=== PATIENT | female | born 1975 | race Caucasian/White ===

== ENCOUNTER 2016-06-20 20:48 | Emergency (ER) | payer OTHER ==
[2016-06-20 21:17] VITALS: BP 118/74
[2016-06-20] MEDS ORDERED: Gabapentin CAP(*) 100 MG PO ONE (23:09)
[2016-06-20] MEDS ORDERED: predniSONE TAB* 5 MG PO ONE (23:09)
[2016-06-20] MEDS ORDERED: predniSONE TAB* 10 MG PO ONE (23:09)
--- NOTE | 2016-06-20 23:16 | ED ---
Lower Extremity - HPI Summary HPI Summary: Patient arrives with CC of burning, pain and sensitivity in right lateral and posterior thigh X 2 days. she states this is similiar to her previous nerve pain when she had endometriosis and experienced pain in the legs that were sensitive to touch. She has not had any vaginal bleeding or experienced any symptoms of endometriosis for a few years. She has taken 800mg ibuprofen with no relief. Pain has not worsened or improved. light touch causes pain and burning sensation. femoral pulses good. no fever. otherwise feeling healthy. no redness over the area. no warmth noted. no color changes or decreased range of motion - History of Current Complaint Chief Complaint: EDExtremityLower Stated Complaint: RT LEG BURNING PAIN Hx Obtained From: Patient Onset of Pain: Hours Onset/Duration: Days Severity Initially: Mild Severity Currently: Moderate Pain Intensity: 6 Pain Scale Used: 0-10 Numeric Timing: Constant Location: Is Discrete @ - right posterior thigh and right lateral thigh Character Of Pain: Sharp, Burning Associated Signs And Symptoms: Positive: Negative Aggravating Factor(s): Other - touch Able to Bear Weight: Yes - Risk Factors Gout Risk Factors: Obesity DVT Risk Factors: Negative Septic Arthritis Risk Factor: Negative - Allergies/Home Medications Allergies/Adverse Reactions: Allergies Allergy/AdvReac Type Severity Reaction Status Date / Time Niacin [From Bugsn[employer]] Allergy Hives Verified 06/20/16 21:16 PMH/Surg Hx/FS Hx/Imm Hx Previously Healthy: Yes - Surgical History Surgery Procedure, Year, and Place: Hysterectomy Infectious Disease History: No Infectious Disease History: Denies: Traveled Outside the [place] in Last 30 Days - Family History Known Family History: Positive: Diabetes, Other - Cancer and Dyslipidemia - Social History Occupation: Employed Full-time Lives: With Family Alcohol Use: None Hx Substance Use: No Substance Use Type: Reports: None Hx Tobacco Use: Yes Smoking Status (MU): Current Some Day Smoker Review of Systems Constitutional: Negative Eyes: Negative ENT: Negative Cardiovascular: Negative Respiratory: Negative Musculoskeletal: Negative Skin: Negative Neurological: Other - burning, sharp pain over posterior and lateral right thigh Psychological: Normal All Other Systems Reviewed And Are Negative: Yes Physical Exam Triage Information Reviewed: Yes Vital Signs On Initial Exam: Initial Vitals Temp Pulse Resp BP Pulse Ox 98.0 F 98 16 118/74 99 06/20/16 21:10 06/20/16 21:10 06/20/16 21:10 06/20/16 21:10 06/20/16 21:10 Vital Signs Reviewed: Yes Appearance: Positive: Well-Appearing, No Pain Distress, Well-Nourished Skin: Positive: Warm, Skin Color Reflects Adequate Perfusion Head/Face: Positive: Normal Head/Face Inspection, Temporal Artery Tenderness Eyes: Positive: Normal, EOMI, RAJANI ENT: Positive: Hearing grossly normal Neck: Positive: Supple, Nontender, No Lymphadenopathy Respiratory/Lung Sounds: Positive: Clear to Auscultation, Breath Sounds Present Cardiovascular: Positive: Normal Musculoskeletal: Positive: Normal, Strength/ROM Intact Neurological: Positive: Alert, Oriented to Person Place, Time, Speech Normal Psychiatric: Positive: Normal Diagnostics - Vital Signs Vital Signs Temp Pulse Resp BP Pulse Ox 06/20/16 21:10 98.0 F 98 16 118/74 99 - Laboratory Lab Statement: Any lab studies that have been ordered have been reviewed, and results considered in the medical decision making process. Lower Extremity Course/Dx - Course Course Of Treatment: Reports of hyperesthesia and allodynia over right posterior and lateral thigh x 2 days. Full ROM, no erythema, warmth, recent surgery or trauma to the area, femoral pulses intact and no fever. D/t presentation, will give steroids and gabapentin for nerve hypersensitivity pain and follow up with PCP for further evaluation. - Diagnoses Differential Diagnosis/HQI/PQRI: Positive: Burn, Phlebitis, Sprain Provider Diagnoses: Hyperesthesia Discharge - Discharge Plan Condition: Stable Disposition: HOME Prescriptions: Gabapentin CAP(*) [Neurontin 100 mg CAP(*)] 200 mg PO TID #30 cap MDD 6 predniSONE TAB* [Deltasone TAB*] 10 mg PO DAILY #17 tab Patient Education Materials: Gabapentin (By mouth) Referrals: Adam PENG,Baudilio Rojas [Primary Care Provider] - Additional Instructions: Yo have been diagnosed with nerve pain. Take Gabapentin and Prednisone as prescribed to you for nerve pain. May take ibuprofen 600mg three times daily with meals for the next week. Follow up with your PCP regarding your symptoms and for further evaluation and blood work. Images - Images Full Body (No Head): 1 - burning and pain
[2016-06-21] MEDS ORDERED: predniSONE TAB* 10 MG PO ONE
== END 2016-06-20 23:47 | disposition home or self-care (01) ==
LOC: ED 20:48
DX: M79.651 Pain in right thigh (principal); R20.3 Hyperesthesia; Z72.0 Tobacco use
CPT/HCPCS: 99282; A9270-GY; J7512

== ENCOUNTER 2016-11-02 16:23 | Emergency (ER) | payer OTHER ==
[2016-11-02] MEDS ORDERED: NS 0.9% 1000 ML* 1,000 ML IV ONE ×2 (18:10→20:12)
[2016-11-02] MEDS ORDERED: Ondansetron INJ* 2 MG/ML VIAL IV ONE (18:10)
[2016-11-02] MEDS ORDERED: HYDROmorphone* 1 MG/ML 1 ML SYR IV ONE ×2 (18:10→21:45)
[2016-11-02 18:35] LABS: Hematocrit 38 % (35-47); Hemoglobin 12.8 g/dl (12.0-16.0); Mean Corpuscular HGB Conc 34 g/dl (31-36); Mean Corpuscular Hemoglobin 30 pg (27-31); Mean Corpuscular Volume 86 fL (80-97); Mean Platelet Volume 8 um3 (7.4-10.4); Red Blood Count 4.35 10^6/ul (4.0-5.4); Red Cell Distribution Width 13 % (10.5-15); White Blood Count 8.9 10^3/ul (3.5-10.8)
--- NOTE | 2016-11-02 18:48 | RAD ---
Indication: Right upper quadrant pain. Real-time sonography of the right upper quadrant was performed. The liver is normal in size. There are no focal lesions or intrahepatic duct dilatation noted. The gallbladder demonstrates no gallstones, pericholecystic fluid or wall thickening. The common duct measures 3 mm. The right kidney measures 10.4 x 5.1 x 4.8 cm with no hydronephrosis. The pancreatic head, neck and proximal body demonstrates no mass or pancreatic duct dilatation. IMPRESSION: No evidence of cholelithiasis or biliary duct dilatation.
[2016-11-02 18:51] LABS: C Reactive Protein 10.92 mg/L (< 5.00); Calcium 9.3 mg/dL (8.6-10.3); EGFR African American 132.9 (>60); EGFR Non-African American 103.3 (>60); Globulin 3.3 g/dL (2-4); Potassium 3.6 mmol/L (3.5-5.0); Total Bilirubin 0.2 mg/dL (0.2-1.0); Total Protein 7.3 g/dL (6.4-8.9)
--- NOTE | 2016-11-02 20:52 | RAD ---
Indication: Right upper quadrant pain. No prior study is available. 2 views of the chest including dual energy PA views and a straight no mediastinal shift. Heart is of normal size and configuration. Lung vasquez demonstrate no pleural fluid, pneumonia or pneumothorax. IMPRESSION: No active cardiopulmonary disease is noted.
[2016-11-02] MEDS ORDERED: Pantoprazole IV* 40 MG IV ONE (21:45)
[2016-11-02 21:48] LABS: Urine Bilirubin Negative (Negative); Urine Glucose Negative (Negative); Urine Nitrite Negative (Negative)
--- NOTE | 2016-11-02 21:49 | ED ---
Marcelo Banegas Alok, scribed for Promise Gibbs MD on 11/02/16 at 1814 . Abdominal Pain/Female - HPI Summary HPI Summary: 41F presents to the ED with constant RUQ abd pain since yesterday at 1600. Pt states that following a meal consisting of meat feeling her abd pain. Pt has tried heat and ibuprofen to manage pain with no effect. Pt also notes vomiting yesterday. Pt denies dysuria. PMHx includes HTN. Pt smokes tobacco. - History of Current Complaint Chief Complaint: EDAbdPain Stated Complaint: ABD/RIB PAIN Time Seen by Provider: 11/02/16 17:46 Hx Obtained From: Patient Onset/Duration: Lasting Days, Still Present Timing: Constant Severity Initially: Moderate Severity Currently: Moderate Pain Intensity: 8 Pain Scale Used: 0-10 Numeric Location: Discrete At: RUQ Aggravating Factor(s): Food Alleviating Factor(s): Nothing Associated Signs and Symptoms: Positive: Vomiting. Negative: Urinary Symptoms Allergies/Adverse Reactions: Allergies Allergy/AdvReac Type Severity Reaction Status Date / Time Niacin [From [employer]Cast] Allergy Hives Verified 06/20/16 21:16 PMH/Surg Hx/FS Hx/Imm Hx - Surgical History Surgery Procedure, Year, and Place: Hysterectomy Infectious Disease History: No Infectious Disease History: Denies: Traveled Outside the [place] in Last 30 Days - Family History Known Family History: Positive: Diabetes, Other - Cancer and Dyslipidemia - Social History Occupation: Employed Full-time Lives: With Family Alcohol Use: None Hx Substance Use: No Substance Use Type: Reports: None Hx Tobacco Use: Yes Smoking Status (MU): Current Some Day Smoker Review of Systems Negative: Fever Positive: Abdominal Pain, Vomiting Negative: dysuria All Other Systems Reviewed And Are Negative: Yes Physical Exam Triage Information Reviewed: Yes Vital Signs On Initial Exam: Initial Vitals Temp Pulse Resp BP Pulse Ox 98.1 F 106 20 130/70 100 11/02/16 16:33 11/02/16 16:33 11/02/16 16:33 11/02/16 16:33 11/02/16 16:33 Vital Signs Reviewed: Yes Appearance: Positive: Well-Appearing, No Pain Distress Skin: Positive: Warm, Skin Color Reflects Adequate Perfusion, Dry Eyes: Positive: EOMI, RAJANI ENT: Positive: Pharynx normal, TMs normal Neck: Positive: Supple, Nontender Respiratory/Lung Sounds: Positive: Clear to Auscultation, Breath Sounds Present. Negative: Rales, Rhonchi, Wheezes Cardiovascular: Positive: RRR, Other - no gallop. Negative: Murmur, Rub Abdomen Description: Positive: Soft, Other: - RUQ tenderness Bowel Sounds: Positive: Present Musculoskeletal: Positive: Strength/ROM Intact. Negative: Edema Left, Edema Right Neurological: Positive: Sensory/Motor Intact, Alert, Oriented to Person Place, Time, CN Intact II-III Psychiatric: Positive: Affect/Mood Appropriate Diagnostics - Vital Signs Vital Signs Temp Pulse Resp BP Pulse Ox 11/02/16 16:34 98.2 F 98 20 130/70 100 11/02/16 16:33 98.1 F 106 20 130/70 100 - Laboratory Lab Results: Lab Results 11/02/16 11/02/16 11/02/16 Range/Units 18:30 18:30 18:30 WBC 8.9 (3.5-10.8) 10^3/ul RBC 4.35 (4.0-5.4) 10^6/ul Hgb 12.8 (12.0-16.0) g/dl Hct 38 (35-47) % MCV 86 (80-97) fL MCH 30 (27-31) pg MCHC 34 (31-36) g/dl RDW 13 (10.5-15) % Plt Count 267 (150-450) 10^3/ul MPV 8 (7.4-10.4) um3 Neut % (Auto) 53.7 (38-83) % Lymph % (Auto) 38.2 (25-47) % [place] % (Auto) 5.2 (1-9) % Eos % (Auto) 2.3 (0-6) % Baso % (Auto) 0.6 (0-2) % Absolute Neuts (auto) 4.8 (1.5-7.7) 10^3/ul Absolute Lymphs (auto) 3.4 (1.0-4.8) 10^3/ul Absolute Monos (auto) 0.5 (0-0.8) 10^3/ul Absolute Eos (auto) 0.2 (0-0.6) 10^3/ul Absolute Basos (auto) 0.1 (0-0.2) 10^3/ul Absolute Nucleated RBC 0 10^3/ul Nucleated RBC % 0 D-Dimer, Quantitative (Less Than 230) ng/mL Sodium 135 (133-145) mmol/L Potassium 3.6 (3.5-5.0) mmol/L Chloride 102 (101-111) mmol/L Carbon Dioxide 23 (22-32) mmol/L Anion Gap 10 (2-11) mmol/L BUN 16 (6-24) mg/dL Creatinine 0.64 (0.51-0.95) mg/dL Est GFR ( Amer) 132.9 (>60) Est GFR (Non-Af Amer) 103.3 (>60) BUN/Creatinine Ratio 25.0 H (8-20) Glucose 84 (70-100) mg/dL Lactic Acid 1.1 (0.5-2.0) mmol/L Calcium 9.3 (8.6-10.3) mg/dL Total Bilirubin 0.20 (0.2-1.0) mg/dL AST 16 (13-39) U/L ALT 16 (7-52) U/L Alkaline Phosphatase 67 (34-104) U/L C-Reactive Protein 10.92 H (< 5.00) mg/L Total Protein 7.3 (6.4-8.9) g/dL Albumin 4.0 (3.2-5.2) g/dL Globulin 3.3 (2-4) g/dL Albumin/Globulin Ratio 1.2 (1-3) Amylase 34 (29-103) U/L Lipase 22 (11.0-82.0) U/L Beta HCG, Quant 1.62 mIU/mL 11/02/16 Range/Units 18:30 WBC (3.5-10.8) 10^3/ul RBC (4.0-5.4) 10^6/ul Hgb (12.0-16.0) g/dl Hct (35-47) % MCV (80-97) fL MCH (27-31) pg MCHC (31-36) g/dl RDW (10.5-15) % Plt Count (150-450) 10^3/ul MPV (7.4-10.4) um3 Neut % (Auto) (38-83) % Lymph % (Auto) (25-47) % [place] % (Auto) (1-9) % Eos % (Auto) (0-6) % Baso % (Auto) (0-2) % Absolute Neuts (auto) (1.5-7.7) 10^3/ul Absolute Lymphs (auto) (1.0-4.8) 10^3/ul Absolute Monos (auto) (0-0.8) 10^3/ul Absolute Eos (auto) (0-0.6) 10^3/ul Absolute Basos (auto) (0-0.2) 10^3/ul Absolute Nucleated RBC 10^3/ul Nucleated RBC % D-Dimer, Quantitative < 200 (Less Than 230) ng/mL Sodium (133-145) mmol/L Potassium (3.5-5.0) mmol/L Chloride (101-111) mmol/L Carbon Dioxide (22-32) mmol/L Anion Gap (2-11) mmol/L BUN (6-24) mg/dL Creatinine (0.51-0.95) mg/dL Est GFR ( Amer) (>60) Est GFR (Non-Af Amer) (>60) BUN/Creatinine Ratio (8-20) Glucose (70-100) mg/dL Lactic Acid (0.5-2.0) mmol/L Calcium (8.6-10.3) mg/dL Total Bilirubin (0.2-1.0) mg/dL AST (13-39) U/L ALT (7-52) U/L Alkaline Phosphatase (34-104) U/L C-Reactive Protein (< 5.00) mg/L Total Protein (6.4-8.9) g/dL Albumin (3.2-5.2) g/dL Globulin (2-4) g/dL Albumin/Globulin Ratio (1-3) Amylase (29-103) U/L Lipase (11.0-82.0) U/L Beta HCG, Quant mIU/mL Result Diagrams: 11/02/16 18:30 11/02/16 18:30 Lab Statement: Any lab studies that have been ordered have been reviewed, and results considered in the medical decision making process. - Radiology CXR Xray Interpretation: Positive (See Comments) - IMPRESSION: NO ACTIVE CARDIOPULMONARY DISEASE IS NOTED. Radiology Interpretation Completed By: Radiologist - EKG 1752 Cardiac Rate: NL - 75 bpm EKG Rhythm: Sinus Rhythm - Additional Comments Diagnostic Additional Comments: Gallbladder US - IMPRESSION: No evidence of cholelithiasis or biliary duct dilatation. Re-Evaluation - Re-Evaluation First Eval Re-Evaluation Time: 19:18 Change: Unchanged Comment: gallbladder US negative. Will do XRAY, UA and check ddimer. Abdominal Pain Fem Course/Dx - Course Course Of Treatment: 41 yo female with ruq pain u/s gall bladder (and rt kidney neg) ,labs neg, cxr neg, but pain is quite persistent from under breast to ruq and epigastric area. she will be re-medicated and given protonix and a scan is being ordered. Pt is being signed out to Dr. Carrion - Diagnoses Provider Diagnoses: Abdominal pain Discharge - Discharge Plan Condition: Stable Disposition: OTHER Discharge Disposition Comment: to be determined The documentation as recorded by the Marcelo bridgse Alok accurately reflects the service I personally performed and the decisions made by me, Promise Gibbs MD.
[2016-11-02] MEDS ORDERED: Iohexol 300* (CONTRAST) 10 ML SDV IV ONE (22:01)
--- NOTE | 2016-11-03 00:03 | ED ---
Enrrique Banegas Aidan, scribed for Kenton Grullon on 11/02/16 at 2357 . Progress - Progress Note Progress Note: CHEST CTA IMPRESSION BY DR. GRULLON: NEGATIVE EXAMINATION. The patient will be discharged home with a diagnosis of nonspecific abdominal pain. The patient should follow up with her primary care provider within 3 days. Re-Evaluation - Re-Evaluation First Eval Re-Evaluation Time: 19:18 Change: Unchanged Comment: gallbladder US negative. Will do XRAY, UA and check ddimer. Course/Dx - Course Course Of Treatment: 41 yo female with ruq pain u/s gall bladder (and rt kidney neg) ,labs neg, cxr neg, but pain is quite persistent from under breast to ruq and epigastric area. she will be re-medicated and given protonix and a scan is being ordered. Pt is being signed out to Dr. Grullon. The patient will be diagnosed with nonspecific abdominal pain and discharged. - Diagnoses Provider Diagnoses: Nonspecific abdominal pain The documentation as recorded by the Enrrique bridges Aidan accurately reflects the service I personally performed and the decisions made by Murali zimmer Emmanuel.
[2016-11-03 00:35] VITALS: BP 107/55
--- NOTE | 2016-11-03 07:50 | RAD ---
INDICATION: 41-year-old female with abdominal pain after eating. Request for CT imaging of the chest/abdomen/pelvis COMPARISON: Gallbladder sonogram same date TECHNIQUE: Axial source images were obtained from the thoracic inlet to the symphysis pubis following administration of oral and intravenous contrast. 100 mL Omnipaque 300 was utilized. Coronal and sagittal reconstructed images were acquired. CHEST FINDINGS: Neck/thyroid: The visualized neck to include the thyroid appear normal. Chest wall: There are no acute abnormalities of the bony thorax or chest wall. There is no supraclavicular, infraclavicular, or axillary lymphadenopathy. Lungs : There are no pulmonary parenchymal masses or infiltrates. The pulmonary interstitium appears normal. There are no endobronchial lesions. Cardiomediastinal structures: The heart is normal in size. There is no pericardial effusion. There is no evidence of aortic aneurysm or dissection. The pulmonary vessels appear normal. There is no mediastinal or hilar adenopathy. The esophagus appears normal. Pleura : There are no pleural-based masses or effusions. ABDOMINAL/PELVIC FINDINGS: Liver: The liver is normal in size. There are no masses. There is no ductal dilatation. Gallbladder: There are no calcified gallstones. There is no evidence of wall thickening or pericholecystic fluid. Spleen: The spleen is normal in size. There are no masses. Pancreas: There is no evidence of pancreatic mass or ductal dilatation. Adrenal glands: There is no evidence of adrenal mass. Kidneys: The kidneys are normal in size and position. There are prompt nephrograms and there is prompt excretion bilaterally. There are no renal parenchymal masses. There is no evidence of nephrolithiasis. Adenopathy: There is no evidence of adenopathy by size criteria. Fluid collections: There are no free or localized fluid collections. Vessels:The aorta and IVC appear normal GI tract: There are no acute CT bowel findings. There is no obstruction. The stomach and small bowel appear normal. The lower GI tract is remarkable for moderate stool but is otherwise normal. The appendix is not visualized. There is no periappendiceal inflammatory change. Pelvic organs: Hysterectomy. No adnexal mass Bladder: There are no bladder masses. Abdominal and pelvic soft tissues: The extraperitoneal abdominal and pelvic soft tissues appear normal.. Osseous structures: There are no acute osseous findings. IMPRESSION: 1. NO CT ABNORMALITIES THE CHEST. 2. NO SIGNIFICANT CT ABDOMEN ABNORMALITIES THE ABDOMEN OR PELVIS. THERE IS MODERATE STOOL WITHIN THE COLON.
== END 2016-11-03 00:35 ==
LOC: ED 16:23
DX: R10.11 Right upper quadrant pain (principal); R10.84 Generalized abdominal pain; R11.10 Vomiting, unspecified; Z72.0 Tobacco use
CPT/HCPCS: 36415; 71020; 71260; 74177; 76705; 80053; 81003; 82150; 83605; 83690; 84702; 85025; 85379; 86140; 93005; 96374; 96375; 99283; J1170; J2405; Q9967

== ENCOUNTER 2018-02-24 08:17 | Emergency (ER) | payer OTHER ==
[2018-02-24] MEDS ORDERED: NS 0.9% 1000 ML* 1,000 ML IV ONE (08:43)
[2018-02-24] MEDS ORDERED: Ketorolac INJ* 30 MG/ML 1 ML VIAL IV PUSH ONE (08:43)
[2018-02-24 08:56] LABS: ABS Basophils 0.1 10^3/ul (0-0.2); ABS Eosinophils 0.2 10^3/ul (0-0.6); ABS Lymphocytes 2.4 10^3/ul (1.0-4.8); ABS Monocytes 0.4 10^3/ul (0-0.8); ABS Nucleated RBC 0 10^3/ul; Eosinophil % 2.8 % (0-6); Hematocrit 39 % (35-47); Hemoglobin 13.6 g/dl (12.0-16.0); Lymphocyte % 39.6 % (25-47); Mean Corpuscular HGB Conc 35 g/dl (31-36); Mean Corpuscular Hemoglobin 30 pg (27-31); Mean Corpuscular Volume 86 fL (80-97); Mean Platelet Volume 7.9 um3 (7.4-10.4); Nucleated Red Blood Cells % 0.2; Platelet Count 271 10^3/ul (150-450); Red Blood Count 4.53 10^6/ul (4.00-5.40); Red Cell Distribution Width 13 % (10.5-15); White Blood Count 6.1 10^3/ul (3.5-10.8)
[2018-02-24 09:14] LABS: EGFR Non-African American 119.9 (>60)
--- NOTE | 2018-02-24 09:20 | RAD ---
Indication: Chest pain. 2 views of the chest including dual energy PA views demonstrates no mediastinal shift. Heart is of normal size and configuration. Lung vasquez appear clear. When compared to previous exam of November 02, 2016 no significant change is noted. IMPRESSION: No active cardiopulmonary disease is noted.
[2018-02-24 11:01] LABS: Urine Appearance Cloudy; Urine Blood Negative (Negative); Urine Color Yellow; Urine Ketones Negative (Negative); Urine Protein Negative (Negative); Urine Specific Gravity 1.011 (1.010-1.030); Urine Urobilinogen Negative (Negative)
[2018-02-24 11:35] VITALS: BP 110/65
--- NOTE | 2018-02-24 13:55 | ED ---
HPI Chest Pain - HPI Summary HPI Summary: Patient is a 42-year-old who presents emergency department for right-sided chest pain times several days. Patient notes she has recently had an upper respiratory infection with a cough but states she has been feeling better. She does note an intermittent and mild productive cough still. She denies fever, chills, abdominal pain, vomiting, diarrhea, urinary symptoms. Patient describes pain as a sharp and heavy sensation that is worse when she takes a deep breath in. It is located to the right side of her chest. She states she has had a gallbladder And HIDA Scan Done before Which Were Negative. Patient Has No Significant past Medical History. She Does Smoke. 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 She Does Not Recall Any Specific Recent Injuries. Symptoms Are Moderate in Severity. Movement and Inspiration Makes Symptoms Worse. Rest Makes Symptoms Better. - History of Current Complaint Chief Complaint: EDChestWallPain Time Seen by Provider: 02/24/18 08:36 Hx Obtained From: Patient Pain Intensity: 3 - Allergy/Home Medications Allergies/Adverse Reactions: Allergies Allergy/AdvReac Type Severity Reaction Status Date / Time MS Zhao [From Drill Map] Allergy Hives Verified 06/20/16 21:16 PMH/Surg Hx/FS Hx/Imm Hx Previously Healthy: Yes - Surgical History Surgery Procedure, Year, and Place: Hysterectomy Infectious Disease History: No Infectious Disease History: Denies: Traveled Outside the [place] in Last 30 Days - Family History Known Family History: Positive: Diabetes, Other - Cancer and Dyslipidemia - Social History Occupation: Employed Full-time Lives: With Family Alcohol Use: None Hx Substance Use: No Substance Use Type: Reports: None Hx Tobacco Use: Yes Smoking Status (MU): Current Some Day Smoker Review of Systems Constitutional: Negative Negative: Fever, Chills Eyes: Negative ENT: Negative Positive: Chest Pain Positive: Cough Gastrointestinal: Negative Negative: Abdominal Pain, Vomiting, Diarrhea, Nausea Genitourinary: Negative Negative: dysuria, frequency, flank pain Musculoskeletal: Negative Skin: Negative Negative: Rash Neurological: Negative All Other Systems Reviewed And Are Negative: Yes Physical Exam Triage Information Reviewed: Yes Vital Signs On Initial Exam: Initial Vitals Temp Pulse Resp BP Pulse Ox 97.8 F 88 19 128/68 98 02/24/18 08:22 02/24/18 08:22 02/24/18 08:22 02/24/18 08:22 02/24/18 08:22 Vital Signs Reviewed: Yes Appearance: Positive: Well-Appearing - Patient sitting up in bed, appears uncomfortable and nontoxic. Skin: Positive: Warm, Dry Head/Face: Positive: Normal Head/Face Inspection Eyes: Positive: Normal, EOMI Neck: Positive: Supple Respiratory/Lung Sounds: Positive: Clear to Auscultation, Breath Sounds Present , Other - Pain on palpation and movement to the right chest wall. No rash.. Negative: Rales, Rhonchi, Wheezes Cardiovascular: Positive: Normal, RRR Abdomen Description: Positive: Nontender, Soft Musculoskeletal: Positive: Normal, Strength/ROM Intact Neurological: Positive: Normal, CN Intact II-III Psychiatric: Positive: Affect/Mood Appropriate Diagnostics - Vital Signs Vital Signs Temp Pulse Resp BP Pulse Ox 02/24/18 11:35 98 F 61 15 110/65 100 02/24/18 11:26 15 110/65 02/24/18 11:00 77 14 98 02/24/18 10:00 64 12 97 02/24/18 09:04 76 14 110/89 99 02/24/18 09:03 73 100 02/24/18 08:34 105 20 119/76 99 02/24/18 08:22 97.8 F 88 19 128/68 98 - Laboratory Lab Results: Lab Results 02/24/18 02/24/18 02/24/18 Range/Units 08:46 08:46 08:46 WBC 6.1 (3.5-10.8) 10^3/ul RBC 4.53 (4.00-5.40) 10^6/ul Hgb 13.6 (12.0-16.0) g/dl Hct 39 (35-47) % MCV 86 (80-97) fL MCH 30 (27-31) pg MCHC 35 (31-36) g/dl RDW 13 (10.5-15) % Plt Count 271 (150-450) 10^3/ul MPV 7.9 (7.4-10.4) um3 Neut % (Auto) 49.4 (38-83) % Lymph % (Auto) 39.6 (25-47) % [place] % (Auto) 7.1 H (0-7) % Eos % (Auto) 2.8 (0-6) % Baso % (Auto) 1.1 (0-2) % Absolute Neuts (auto) 3.0 (1.5-7.7) 10^3/ul Absolute Lymphs (auto) 2.4 (1.0-4.8) 10^3/ul Absolute Monos (auto) 0.4 (0-0.8) 10^3/ul Absolute Eos (auto) 0.2 (0-0.6) 10^3/ul Absolute Basos (auto) 0.1 (0-0.2) 10^3/ul Absolute Nucleated RBC 0 10^3/ul Nucleated RBC % 0.2 D-Dimer, Quantitative < 200 (Less Than 230) ng/mL Sodium 137 (135-145) mmol/L Potassium 4.0 (3.5-5.0) mmol/L Chloride 107 (101-111) mmol/L Carbon Dioxide 21 L (22-32) mmol/L Anion Gap 9 (2-11) mmol/L BUN 15 (6-24) mg/dL Creatinine 0.56 (0.51-0.95) mg/dL Est GFR ( Amer) 145.1 (>60) Est GFR (Non-Af Amer) 119.9 (>60) BUN/Creatinine Ratio 26.8 H (8-20) Glucose 98 (70-100) mg/dL Calcium 9.5 (8.6-10.3) mg/dL Total Bilirubin 0.40 (0.2-1.0) mg/dL AST 14 (13-39) U/L ALT 16 (7-52) U/L Alkaline Phosphatase 78 (34-104) U/L Troponin I 0.00 (<0.04) ng/mL Total Protein 7.3 (6.4-8.9) g/dL Albumin 4.2 (3.2-5.2) g/dL Globulin 3.1 (2-4) g/dL Albumin/Globulin Ratio 1.4 (1-3) Urine Color Urine Appearance Urine pH (5-9) Ur Specific Eagle (1.010-1.030) Urine Protein (Negative) Urine Ketones (Negative) Urine Blood (Negative) Urine Nitrate (Negative) Urine Bilirubin (Negative) Urine Urobilinogen (Negative) Ur Leukocyte Esterase (Negative) Urine Glucose (Negative) 09/26/18 Range/Units 10:38 WBC (3.5-10.8) 10^3/ul RBC (4.00-5.40) 10^6/ul Hgb (12.0-16.0) g/dl Hct (35-47) % MCV (80-97) fL MCH (27-31) pg MCHC (31-36) g/dl RDW (10.5-15) % Plt Count (150-450) 10^3/ul MPV (7.4-10.4) um3 Neut % (Auto) (38-83) % Lymph % (Auto) (25-47) % [place] % (Auto) (0-7) % Eos % (Auto) (0-6) % Baso % (Auto) (0-2) % Absolute Neuts (auto) (1.5-7.7) 10^3/ul Absolute Lymphs (auto) (1.0-4.8) 10^3/ul Absolute Monos (auto) (0-0.8) 10^3/ul Absolute Eos (auto) (0-0.6) 10^3/ul Absolute Basos (auto) (0-0.2) 10^3/ul Absolute Nucleated RBC 10^3/ul Nucleated RBC % D-Dimer, Quantitative (Less Than 230) ng/mL Sodium (135-145) mmol/L Potassium (3.5-5.0) mmol/L Chloride (101-111) mmol/L Carbon Dioxide (22-32) mmol/L Anion Gap (2-11) mmol/L BUN (6-24) mg/dL Creatinine (0.51-0.95) mg/dL Est GFR ( Amer) (>60) Est GFR (Non-Af Amer) (>60) BUN/Creatinine Ratio (8-20) Glucose (70-100) mg/dL Calcium (8.6-10.3) mg/dL Total Bilirubin (0.2-1.0) mg/dL AST (13-39) U/L ALT (7-52) U/L Alkaline Phosphatase (34-104) U/L Troponin I (<0.04) ng/mL Total Protein (6.4-8.9) g/dL Albumin (3.2-5.2) g/dL Globulin (2-4) g/dL Albumin/Globulin Ratio (1-3) Urine Color Yellow Urine Appearance Cloudy Urine pH 7.0 (5-9) Ur Specific Eagle 1.011 (1.010-1.030) Urine Protein Negative (Negative) Urine Ketones Negative (Negative) Urine Blood Negative (Negative) Urine Nitrate Negative (Negative) Urine Bilirubin Negative (Negative) Urine Urobilinogen Negative (Negative) Ur Leukocyte Esterase Negative (Negative) Urine Glucose Negative (Negative) Result Diagrams: 02/24/18 08:46 02/24/18 08:46 Lab Statement: Any lab studies that have been ordered have been reviewed, and results considered in the medical decision making process. Chest Pain Course/Dx - Course Course Of Treatment: Pt. presenting with pleuritic chest pain. She is afebrile with stable vital signs. We'll obtain basic labs, EKG and chest x-ray. Patient given a dose of IV Toradol. Blood work is unremarkable including negative troponin and d-dimer. EKG done at 0848 shows a sinus rhythm of 80 bpm , normal axis, appropriate intervals, no ST elevation or depression. Chest x- ray is negative for acute findings, reading per radiology. On reexamination patient is feeling much better and is resting comfortably. Suspect possible costochondritis versus muscle strain. She states she has 800 mg Motrin at home which advised her to take. Advised her to try ice intermittently. Work excuse given. To call her family doctor tomorrow for close follow-up appointment. We' ll return to the ER if symptoms change or worsen. Patient understands and agrees with plan. - Diagnoses Provider Diagnoses: Costochondritis, Muscle strain Discharge - Sign-Out/Discharge Documenting (check all that apply): Patient Departure - Discharge Plan Condition: Improved Disposition: HOME Patient Education Materials: Muscle Strain (ED), Costochondritis (ED) Forms: *Work Release Referrals: Adam PENG,Baudilio Rojas [Primary Care Provider] - Additional Instructions: Schedule a follow up appointment with your PCP Take ibuprofen as directed Ice intermittently Return to ER if symptoms change or worsen - Billing Disposition and Condition Condition: IMPROVED Disposition: Home
== END 2018-02-24 11:35 | disposition home or self-care (01) ==
LOC: ED 08:17
DX: R07.81 Pleurodynia (principal); F17.200 Nicotine dependence, unspecified, uncomplicated; Z88.8 Allergy status to other drugs, medicaments and biological substances
CPT/HCPCS: 36415; 71046; 80053; 81003; 84484; 85025; 85379; 93005; 96361; 96374; 99283; J1885

== ENCOUNTER 2019-06-14 18:22 | Emergency (ER) | payer SELFPAY ==
[2019-06-14 19:26] LABS: ABS Basophils 0.1 10^3/ul (0-0.2); ABS Eosinophils 0.2 10^3/ul (0-0.6); ABS Lymphocytes 2.8 10^3/ul (1.0-4.8); ABS Monocytes 0.4 10^3/ul (0-0.8); ABS Neutrophils 3.5 10^3/ul (1.5-7.7); Eosinophil % 2.9 %; Hematocrit 39 % (35-47); Hemoglobin 13.9 g/dL (12.0-16.0); Lymphocyte % 40.6 %; Mean Corpuscular HGB Conc 36 g/dL (31-36); Mean Corpuscular Hemoglobin 31 pg (27-31); Mean Corpuscular Volume 86 fL (80-97); Mean Platelet Volume 8.2 fL (7.4-10.4); Nucleated Red Blood Cells % 0.1; Platelet Count 292 10^3/uL (150-450); Red Blood Count 4.51 10^6 /uL (3.70-4.87); Red Cell Distribution Width 13 % (10-15)
[2019-06-14 19:30] LABS: INR 1.04 (0.82-1.09)
[2019-06-14 19:52] LABS: Albumin 4.6 g/dL (3.2-5.2); Albumin/Globulin Ratio 1.4 (1-3); BUN/Creatinine Ratio 12.3 (8-20); Calcium 9.9 mg/dL (8.6-10.3); EGFR African American 94.3 (>60); EGFR Non-African American 77.9 (>60); Globulin 3.4 g/dL (2-4); Total Bilirubin 0.2 mg/dL (0.2-1.0)
[2019-06-14 20:17] LABS: Potassium 4.2 mmol/L (3.5-5.0)
[2019-06-14 20:19] VITALS: BP 118/72
== END 2019-06-14 21:42 | disposition left against medical advice (07) ==
LOC: ED 18:22
DX: R51 Headache (principal); Z53.21 Procedure and treatment not carried out due to patient leaving prior to being seen by health care provider
CPT/HCPCS: 36415; 70450; 80053; 85025; 85610; 99282